=== PATIENT | male | born 1950 | race Caucasian/White ===

== ENCOUNTER → 2017-07-09 | Outpatient (CLI) | payer MEDICARE, BC ==
[~2017-07-09] MED LIST: ASPIRIN81 M2 PO; LIPITOR40 MG PO; LOSARTAN POTASS50 MG PO; MULTIVITAMIN1 EAC2 PO; PLAVIX75 MG PO; PROVENTIL HFA6.7 GM IH; ZETIA10 MG PO
== END | disposition home or self-care (01) ==
LOC: CDC 11:27
DX: Z01.810 Encounter for preprocedural cardiovascular examination (principal)
CPT/HCPCS: 93000

== ENCOUNTER → 2017-08-30 | Outpatient (CLI) | payer OTHER, BC | END | disposition home or self-care (01) | LOC: NUC 09:12 | DX: M19.012 Primary osteoarthritis, left shoulder (principal); M19.011 Primary osteoarthritis, right shoulder; M47.892 Other spondylosis, cervical region; M17.0 Bilateral primary osteoarthritis of knee | CPT/HCPCS: 78306; A9503 ==

== ENCOUNTER → 2018-07-08 | Outpatient (CLI) | payer MEDICARE, BC | END | disposition home or self-care (01) | LOC: CDC 08:10 | DX: Z01.810 Encounter for preprocedural cardiovascular examination (principal); I70.25 Atherosclerosis of native arteries of other extremities with ulceration; R94.31 Abnormal electrocardiogram [ECG] [EKG] | CPT/HCPCS: 93000 ==